=== PATIENT | male | born 1975 | race Hispanic/Latino ===

== ENCOUNTER 2021-01-14 04:35 | Inpatient (IN) | payer OTHER ==
[~2021-01-14] VITALS: Ht 180.3 cm; Wt 116.1 kg
[2021-01-14 05:11] LABS: ABG BASE EXCESS -7.2 mmol/L (-2.0-3.0); ABG HCO3 16.3 mmol/L (21.0-28.0); ABG OXYGEN SATURATION 94.5 % (95.0-99.0); ABG PCO2 28 mmHg (35-48)
[2021-01-14] MEDS ORDERED: IOHEXOL-350 75 ML VIAL IV ONE (05:18)
[2021-01-14 05:27] LABS: BASOPHILS % (AUTO) 0.2 % (0.0-5.0); EOSINOPHILS % (AUTO) 0.2 % (0.0-8.0); HEMATOCRIT 38.5 % (42-54); LYMPHOCYTES % (AUTO) 7.6 % (21.0-51.0); MEAN CORPUSCULAR HEMOGLOBIN 30.5 pg (27.0-33.0); MEAN CORPUSCULAR HGB CONC 35.6 g/dL (32.0-36.0); MEAN CORPUSCULAR VOLUME 85.7 fL (79-99); MONOCYTES % (AUTO) 7.1 % (3.0-13.0); NEUTROPHILS % (AUTO) 84.1 % (40.0-77.0); PLATELET COUNT (AUTO) 295 K/uL (130-400); RED BLOOD CELL COUNT(AUTO) 4.49 MIL/uL (4.50-6.20); RED CELL DISTRIBUTION WIDTH 13.2 % (11.0-15.5); WHITE BLOOD COUNT (AUTO) 22.7 K/uL (4.8-10.8)
[2021-01-14 05:30] LABS: CREATININE 3.3 mg/dL (0.5-1.5); POTASSIUM 5.3 mmol/L (3.5-5.1)
[2021-01-14 05:35] LABS: INR 1.06 (0.85-1.15); PROTHROMBIN TIME 11.5 SEC (9.6-11.6)
[2021-01-14 05:37] LABS: PARTIAL THROMBOPLASTIN TIME 24.1 SEC (26.3-35.5)
[2021-01-14 05:38] LABS: ALBUMIN 3.9 g/dL (3.5-5.0); BILIRUBIN,TOTAL 1.1 mg/dL (0.2-1.0); TOTAL PROTEIN, SERUM 7.6 g/dL (6.0-8.3)
[2021-01-14 05:39] LABS: TROPONIN I 0.22 ng/mL (0.00-0.06)
[2021-01-14] MEDS ORDERED: KETAMINE HCL 100 MG/ML 5ML VIAL IJ ONE (05:41)
[2021-01-14] MEDS ORDERED: AZITHROMYCIN 500MG+NS 250ML 250 ML IV ONE (05:43)
[2021-01-14] MEDS ORDERED: CEFTRIAXONE 1G VIAL ONE (05:43)
[2021-01-14] MEDS ORDERED: LIDOCAINE HCL 1% 20 ML VIAL ONE (05:50)
[2021-01-14] MEDS ORDERED: FENTANYL CITRATE PF 50 MCG/1 ML 2ML VIAL ONE ×2 (06:25→14:33)
[2021-01-14] MEDS ORDERED: HYDROMORPHONE 1 MG INJ ONE (07:44)
[2021-01-14] MEDS ORDERED: ONDANSETRON 4MG INJ ONE (07:51)
[2021-01-14] MEDS ORDERED: ACETAMINOPHEN 325 MG TAB PO PRN ×2 (08:00)
[2021-01-14] MEDS ORDERED: DOXYCYCLINE 100MG+NS 250ML 250 ML IV SCH ×2 (08:00→09:00)
[2021-01-14] MEDS ORDERED: ONDANSETRON 4MG INJ IV PRN (08:00)
[2021-01-14] MEDS ORDERED: AZITHROMYCIN 500MG+NS 250ML 250 ML IV SCH (08:00)
[2021-01-14] MEDS ORDERED: LEVOFLOXACIN 750 MG/D5W 150 ML 150 ML IV SCH ×2 (09:00→09:45)
[2021-01-14 09:24] LABS: HEMATOCRIT 33.8 % (42-54)
[2021-01-14 09:32] LABS: HEMOGLOBIN A1C 5.1 % (4.0-6.0)
[2021-01-14] MEDS: FAMOTIDINE 20MG VIAL IV SCH (09:36)
[2021-01-14 10:53] LABS: ALCOHOL, BLOOD < 3 mg/dL (0-10)
[2021-01-14] MEDS ORDERED: LEVOFLOXACIN 750 MG/D5W 150 ML 150 ML ONE (10:58)
[2021-01-14] MEDS ORDERED: MORPHINE 2 MG SYG ONE (11:58)
[2021-01-14] MEDS ORDERED: FENTANYL CITRATE PF 50 MCG/1 ML 2ML VIAL IVP PRN (12:00)
[2021-01-14] MEDS: 0.9%NACL 1000ML 1,000 ML IV SCH (12:00)
[2021-01-14] MEDS: CEFTRIAXONE 500MG VIAL IV SCH (12:00)
[2021-01-14] MEDS ORDERED: CEFTRIAXONE 500MG VIAL ONE (12:20)
[2021-01-14 12:48] LABS: HEMATOCRIT 32.4 % (42-54)
[2021-01-14] MEDS: MORPHINE 2 MG SYG IV PRN ×3 (17:18→21:57)
[2021-01-14 17:44] LABS: APPEARANCE,URINE Clear (CLEAR); BILIRUBIN,URINE Negative (NEGATIVE); COLOR,URINE Yellow (YELLOW); GLUCOSE, URINE (UA) Negative (NEGATIVE); KETONES,URINE Trace mg/dL (NEGATIVE); LEUKOCYTE ESTERASE ,URINE Negative (NEGATIVE); NITRATE,URINE Negative (NEGATIVE); OCCULT BLOOD,URINE Negative (NEGATIVE); PH,URINE 5.5 (5.0-8.0); PROTEIN,URINE Trace mg/dL (NEGATIVE); UROBILINOGEN,URINE 0.2 mg/dL (0.2-1.0)
[2021-01-14 17:49] LABS: CREATININE,URINE RANDOM 253 mg/dL (30-135); SODIUM,URINE RANDOM < 15 mmol/l (40-220)
[2021-01-14 17:53] LABS: HEMATOCRIT 30.3 % (42-54)
[2021-01-14 17:53] LABS: AMPHET/METH SCREEN,URINE NEGATIVE (NEGATIVE); BARBITURATE SCREEN, URINE NEGATIVE (NEGATIVE); BENZODIAZEPINES SCREEN,URINE NEGATIVE (NEGATIVE); CANNABINOID SCREEN,URINE NEGATIVE (NEGATIVE); COCAINE SCREEN,URINE NEGATIVE (NEGATIVE); OPIATE SCREEN,URINE POSITIVE (NEGATIVE); PHENCYCLIDINE SCREEN,URINE NEGATIVE (NEGATIVE); RBC,URINE 0-1 /HPF (0-1); WBC,URINE 0-1 /HPF (0-1)
[2021-01-14 17:54] LABS: BACTERIA,URINE Few /HPF (None Seen); MUCUS,URINE Rare LPF (None Seen); SQUAMOUS EPITHELIAL CELL,UR Rare /HPF (0-2)
[2021-01-14 19:02] VITALS: BP 143/102
[2021-01-14 20:30] VITALS: BP 110/80
[2021-01-14 21:02] VITALS: BP 127/57
[2021-01-14 21:18] LABS: HEMATOCRIT 28.7 % (42-54)
[2021-01-14 22:02] VITALS: BP 132/95
[2021-01-15] VITALS (11 sets, daily range): BP systolic 98–150; BP diastolic 50–84
[2021-01-15] MEDS: 0.9%NACL 1000ML 1,000 ML IV SCH ×2 (01:20→15:52)
[2021-01-15] MEDS ORDERED: PROPOFOL 1000 MG/100 ML 100 ML IV ONE (02:23)
[2021-01-15 06:09] LABS: HEMATOCRIT 25.1 % (42-54)
[2021-01-15 06:18] LABS: INR 1.07 (0.85-1.15); PROTHROMBIN TIME 11.6 SEC (9.6-11.6)
[2021-01-15 06:20] LABS: PARTIAL THROMBOPLASTIN TIME 27.9 SEC (26.3-35.5)
[2021-01-15] MEDS: MORPHINE 2 MG SYG IV PRN ×2 (06:23→12:34)
[2021-01-15 07:56] LABS: BASOPHILS % (AUTO) 0.4 % (0.0-5.0); EOSINOPHILS % (AUTO) 0.1 % (0.0-8.0); LYMPHOCYTES % (AUTO) 16.4 % (21.0-51.0); MEAN CORPUSCULAR HEMOGLOBIN 30.6 pg (27.0-33.0); MEAN CORPUSCULAR HGB CONC 35.3 g/dL (32.0-36.0); MEAN CORPUSCULAR VOLUME 86.7 fL (79-99); MONOCYTES % (AUTO) 11.3 % (3.0-13.0); NEUTROPHILS % (AUTO) 71.5 % (40.0-77.0); PLATELET COUNT (AUTO) 135 K/uL (130-400); RED BLOOD CELL COUNT(AUTO) 2.94 MIL/uL (4.50-6.20); RED CELL DISTRIBUTION WIDTH 13.2 % (11.0-15.5)
[2021-01-15 08:06] LABS: CREATININE 1.2 mg/dL (0.5-1.5); POTASSIUM 4.3 mmol/L (3.5-5.1)
[2021-01-15] MEDS: FAMOTIDINE 20MG VIAL IV SCH (09:19)
[2021-01-15] MEDS: CEFTRIAXONE 500MG VIAL IV SCH (09:19)
[2021-01-15 11:39] LABS: HEMATOCRIT 25.5 % (42-54)
[2021-01-15 15:57] LABS: HEMATOCRIT 25.4 % (42-54)
[2021-01-15 20:32] LABS: HEMATOCRIT 25.4 % (42-54)
[2021-01-16 00:09] LABS: HEMATOCRIT 23.8 % (42-54)
[2021-01-16] MEDS: MORPHINE 2 MG SYG IV PRN ×2 (02:11→18:03)
[2021-01-16 03:06] VITALS: BP 109/64
[2021-01-16 04:25] LABS: HEMATOCRIT 24.1 % (42-54)
[2021-01-16] MEDS: 0.9%NACL 1000ML 1,000 ML IV SCH ×2 (04:37→09:44)
[2021-01-16 04:38] LABS: POTASSIUM 3.9 mmol/L (3.5-5.1)
[2021-01-16 04:40] LABS: % IRON SATURATION 14.5 % (30-44)
[2021-01-16 08:00] VITALS: BP 132/57
[2021-01-16 08:14] LABS: HEMATOCRIT 27.1 % (42-54)
[2021-01-16] MEDS: CEFTRIAXONE 500MG VIAL IV SCH ×2 (09:00→09:43)
[2021-01-16] MEDS ORDERED: CEFTRIAXONE 1G VIAL IV SCH (09:15)
[2021-01-16] MEDS: FAMOTIDINE 20MG VIAL IV SCH (09:43)
[2021-01-16] MEDS ORDERED: COMPOUND IV MISC 1 EACH IVSOLN MISC PRN (11:15)
[2021-01-16] MEDS: IRON SUCROSE COMPLEX 100 MG in 0.9%NACL 50ML 50 ML IV SCH (11:30)
[2021-01-16 12:00] VITALS: BP 132/77
[2021-01-16 12:09] LABS: HEMATOCRIT 24.1 % (42-54)
[2021-01-16 16:52] LABS: APPEARANCE BODY FLUID BLOODY (CLEAR); COLOR,BODY FLUID RED (LT YELLOW); SPECIMENTYPE,BODY FLUID PLEURAL; TOTAL VOLUME,BODY FLUID 380 mL
[2021-01-16 16:53] LABS: BODY FLUID WBC 10500 /cu. mm.
[2021-01-16 16:57] LABS: BODY FLUID RBC 2955000 /cu. mm.
[2021-01-16 17:04] LABS: BF LYMPHOCYTE 12 %; BF MESOTHELIAL 5 %
[2021-01-16 18:23] VITALS: BP 124/70
[2021-01-16 19:32] VITALS: BP 130/73
[2021-01-16 23:34] VITALS: BP 122/62
[2021-01-17 03:14] VITALS: BP 133/74
[2021-01-17 05:27] LABS: BASOPHILS % (AUTO) 0.6 % (0.0-5.0); EOSINOPHILS % (AUTO) 1.5 % (0.0-8.0); HEMATOCRIT 27.2 % (42-54); LYMPHOCYTES % (AUTO) 22.4 % (21.0-51.0); MEAN CORPUSCULAR HEMOGLOBIN 30.5 pg (27.0-33.0); MEAN CORPUSCULAR HGB CONC 34.9 g/dL (32.0-36.0); MEAN CORPUSCULAR VOLUME 87.5 fL (79-99); MONOCYTES % (AUTO) 10.4 % (3.0-13.0); NEUTROPHILS % (AUTO) 64.5 % (40.0-77.0); PLATELET COUNT (AUTO) 175 K/uL (130-400); RED BLOOD CELL COUNT(AUTO) 3.11 MIL/uL (4.50-6.20); RED CELL DISTRIBUTION WIDTH 13.1 % (11.0-15.5); WHITE BLOOD COUNT (AUTO) 6.5 K/uL (4.8-10.8)
[2021-01-17 05:47] LABS: CREATININE 0.9 mg/dL (0.5-1.5); POTASSIUM 3.7 mmol/L (3.5-5.1)
[2021-01-17 08:00] VITALS: BP 138/66
[2021-01-17] MEDS: CEFTRIAXONE 500MG VIAL IV SCH (09:00)
[2021-01-17] MEDS: IRON SUCROSE COMPLEX 100 MG in 0.9%NACL 50ML 50 ML IV SCH (09:08)
[2021-01-17] MEDS: FAMOTIDINE 20MG VIAL IV SCH (09:08)
[2021-01-17 12:00] VITALS: BP 134/86
[2021-01-17] MEDS ORDERED: LEVO500T90 PO (14:21)
[2021-01-17 16:00] VITALS: BP 134/86
[2021-01-17] MEDS ORDERED: CEFDINIR 125MG/5ML 100ML BOTTLE PO SCH (21:00)
[2021-01-18] MEDS ORDERED: LEVOFLOXACIN 500 MG TABLET PO SCH (09:00)
[2021-01-18 21:07] LABS: HEPATITIS Bs ANTIGEN SCREEN P Negative (Negative)
== END 2021-01-17 17:13 | disposition home or self-care (01) | DRG 199 ==
LOC: EDH 04:35 → UNDOADMIN 04:36 → EDHIP 04:36 → 2BH 15:51 → 2AH 01-15 19:19
PROVIDERS: ADMIT Internal Medicine; ATTEND Internal Medicine
PROC: 0W9930Z Drainage of Right Pleural Cavity with Drainage Device, Percutaneous Approach (ICD-10-PCS; principal; 2021-01-14)
PROC: 0WP9X0Z Removal of Drainage Device from Right Pleural Cavity, External Approach (ICD-10-PCS; 2021-01-16)
DX: J93.0 Spontaneous tension pneumothorax (principal); J96.01 Acute respiratory failure with hypoxia; J18.9 Pneumonia, unspecified organism; J94.2 Hemothorax; D62 Acute posthemorrhagic anemia; N17.9 Acute kidney failure, unspecified; J94.8 Other specified pleural conditions; E87.5 Hyperkalemia; F10.10 Alcohol abuse, uncomplicated; R93.89 Abnormal findings on diagnostic imaging of other specified body structures; Z20.822 Contact with and (suspected) exposure to COVID-19; F17.290 Nicotine dependence, other tobacco product, uncomplicated; E11.65 Type 2 diabetes mellitus with hyperglycemia; I10 Essential (primary) hypertension; R53.81 Other malaise; E86.9 Volume depletion, unspecified; E87.8 Other disorders of electrolyte and fluid balance, not elsewhere classified; E66.9 Obesity, unspecified; E78.5 Hyperlipidemia, unspecified; Z68.35 Body mass index [BMI] 35.0-35.9, adult; Z88.0 Allergy status to penicillin
CPT/HCPCS: 36415; 36600; 71045; 71250; 71275; 76770; 80048; 80053; 80305; 81001; 82435; 82550; 82570; 82803; 82947; 82948; 83036; 83540; 83550; 83605; 83615; 83690; 83874; 83880; 84132; 84145; 84157; 84295; 84300; 84484; 85014; 85018; 85025; 85378; 85384; 85610; 85730; 86140; 86701; 86850; 86900; 86901; 86923; 87040; 87071; 87088; 87116; 87205; 87206; 87340; 87390; 87426; 87520; 87641; 87804; 89051; 93005; 99291; G0378; J0456; J0696; J1170; J1756; J1956; J2405; J2704; J3010; J3490; J7030; Q9967; U0003

== ENCOUNTER 2021-01-29 09:19 | Emergency (ER) | payer OTHER ==
[~2021-01-29 09:19] MED LIST: LEVO500T89 PO
== END 2021-01-29 10:50 | disposition home or self-care (01) ==
LOC: EDH 09:19
DX: Z48.02 Encounter for removal of sutures (principal); Z88.0 Allergy status to penicillin
CPT/HCPCS: 99281